=== PATIENT | female | born 1980 | race Two or more races ===

== ENCOUNTER 2018-01-11 17:04 | Emergency (ER) | payer OTHER ==
[2018-01-11] MEDS: NAPROXEN 500 MG TABLET PO (17:39)
== END 2018-01-11 19:11 | disposition home or self-care (01) ==
LOC: ER 17:04
DX: S39.012A Strain of muscle, fascia and tendon of lower back, initial encounter (principal); V43.52XA Car driver injured in collision with other type car in traffic accident, initial encounter; Y93.89 Activity, other specified; Y92.488 Other paved roadways as the place of occurrence of the external cause; Y99.8 Other external cause status
CPT/HCPCS: 72100; 99284